=== PATIENT | male | born 1990 | race Caucasian/White ===

== ENCOUNTER → 2021-03-29 | Outpatient (CLI) | payer OTHER ==
--- NOTE | 2021-03-29 18:01 | XR ---
EXAMINATION TYPE: XR shoulder complete RT DATE OF EXAM: 03/29/2021 5:44 PM INDICATION: Patient age:Male; 30 years old; Reason for study: S46.911A; [facility]. COMPARISON: None TECHNIQUE: The right shoulder was examined in AP, internally rotated and axillary projections. FINDINGS: No evidence of acute osseous pathology, joint dislocation, or soft tissue swelling. The remaining por tions of the visualized chest are unremarkable. IMPRESSION: No acute osseous pathology.
== END | disposition home or self-care (01) ==
LOC: RADXRMAIN 17:11
PROVIDERS: ATTEND Emergency Medicine
DX: S46.911A Strain of unspecified muscle, fascia and tendon at shoulder and upper arm level, right arm, initial encounter (principal)

== ENCOUNTER 2021-08-26 14:28 | Emergency (ER) | payer OTHER ==
[2021-08-26 15:51] VITALS: BP 138/90; PULSE 83; RESP 18; TEMP 97.9
[2021-08-26 16:29] LABS: Basophils # (A) 0.1 k/uL (0-0.2); Basophils % (A) 1 %; Eosinophils # (A) 0.1 k/uL (0-0.7); Eosinophils % (A) 2 %; HCT 42.8 % (39.0-53.0); HGB 14.6 gm/dL (13.0-17.5); Lymphocytes # (A) 2.7 k/uL (1.0-4.8); Lymphocytes % (A) 35 %; MCH 28.9 pg (25.0-35.0); MCHC 34.2 g/dL (31.0-37.0); MCV 84.6 fL (80.0-100.0); Mean Platelet Volume 6.5; Monocytes # (A) 0.3 k/uL (0-1.0); Monocytes % (A) 3 %; Neutrophils # (A) 4.5 k/uL (1.3-7.7); Neutrophils % (A) 58 %; Platelet Count 237 k/uL (150-450); RBC 5.06 m/uL (4.30-5.90); RDW 12.3 % (11.5-15.5); WBC 7.7 k/uL (3.8-10.6)
[2021-08-26 16:37] LABS: ALT 55 U/L (4-49); AST 35 U/L (17-59); African American GFR (CKD) >90 (>60 ml/min/1.73 sqM); Albumin 4.6 g/dL (3.5-5.0); Alkaline Phosphatase 70 U/L (38-126); Amylase 47 U/L (30-110); Anion Gap 7 mmol/L; Blood Urea Nitrogen 15 mg/dL (9-20); Calcium 9.1 mg/dL (8.4-10.2); Carbon Dioxide 30 mmol/L (22-30); Chloride 104 mmol/L (98-107); Glucose 115 mg/dL (74-99); Lipase 40 U/L (23-300); Non-African American GFR(CKD) >90 (>60 ml/min/1.73 sqM); Potassium 3.9 mmol/L (3.5-5.1); Sodium 141 mmol/L (137-145); Total Bilirubin 0.4 mg/dL (0.2-1.3); Total Protein 7.3 g/dL (6.3-8.2)
--- NOTE | 2021-08-26 17:02 | XR ---
EXAMINATION TYPE: XR KUB DATE OF EXAM: 08/26/2021 4:35 PM INDICATION: Patient age:Male; 31 years old; Reason for study: abdominal pain; COMPARISON: None. TECHNIQUE: One radiographic view of the abdomen was obtained. FINDINGS: The bowel gas pattern is nonspecific without dilated loops of small or large bowel. The oss eous structures are intact. No abnormal calcifications are present. Fecal material and gas are demon strated throughout the colon and rectum. IMPRESSION: Nonspecific bowel gas pattern without radiographic evidence for acute process.
== END 2021-08-26 21:19 | disposition left against medical advice (07) ==
LOC: EC 14:28
DX: Z53.21 Procedure and treatment not carried out due to patient leaving prior to being seen by health care provider (principal); R10.9 Unspecified abdominal pain
CPT/HCPCS: 36415; 74018; 80053; 82150; 83690; 85025; 99499

== ENCOUNTER 2021-12-28 21:12 | Emergency (ER) | payer OTHER ==
[2021-12-28 22:26] VITALS: BP 152/109; PULSE 83; RESP 18; TEMP 98.5
[2021-12-29] MEDS ORDERED: SODIUM CHLORIDE 0.9% 1,000 ML IV STA (00:03)
[2021-12-29] MEDS ORDERED: PANTOPRAZOLE 40 MG/10 ML VIAL IVP STA (00:05)
[2021-12-29 00:42] LABS: Basophils % (A) 1 %; Eosinophils # (A) 0.1 k/uL (0-0.7); Eosinophils % (A) 2 %; HCT 41.2 % (39.0-53.0); HGB 15.2 gm/dL (13.0-17.5); Lymphocytes # (A) 2.7 k/uL (1.0-4.8); Lymphocytes % (A) 39 %; MCHC 36.9 g/dL (31.0-37.0); MCV 81.3 fL (80.0-100.0); Monocytes # (A) 0.4 k/uL (0-1.0); Monocytes % (A) 6 %; Neutrophils # (A) 3.6 k/uL (1.3-7.7); Neutrophils % (A) 52 %; Platelet Count 236 k/uL (150-450); RBC 5.07 m/uL (4.30-5.90); RDW 11.9 % (11.5-15.5); WBC 6.9 k/uL (3.8-10.6)
[2021-12-29 00:45] LABS: ALT 63 U/L (4-49); AST 38 U/L (17-59); African American GFR (CKD) >90 (>60 ml/min/1.73 sqM); Albumin 4.6 g/dL (3.5-5.0); Alkaline Phosphatase 74 U/L (38-126); Amylase 54 U/L (30-110); Anion Gap 12 mmol/L; Blood Urea Nitrogen 14 mg/dL (9-20); Carbon Dioxide 27 mmol/L (22-30); Chloride 100 mmol/L (98-107); Glucose 102 mg/dL (74-99); Lipase 56 U/L (23-300); Non-African American GFR(CKD) >90 (>60 ml/min/1.73 sqM); Potassium 3.8 mmol/L (3.5-5.1); Sodium 139 mmol/L (137-145); Total Bilirubin 0.5 mg/dL (0.2-1.3)
--- NOTE | 2021-12-29 01:18 | XR ---
EXAMINATION TYPE: XR KUB DATE OF EXAM: 12/29/2021 COMPARISON: NONE HISTORY: Acid reflux. Vomiting TECHNIQUE: Supine views FINDINGS: There is no sign of intestinal obstruction or pneumoperitoneum. Fecal pattern is normal. No evidence of a mass. Lung bases are clear. There are no pathologic calcifications. IMPRESSION: Nonacute abdomen.
--- NOTE | 2021-12-29 02:15 | ED ---
General Adult HPI - General Chief complaint: Nausea/Vomiting/Diarrhea Stated complaint: Vomiting Time Seen by Provider: 12/28/21 23:43 Source: patient Mode of arrival: ambulatory Limitations: no limitations - History of Present Illness Initial comments: Patient is a 31-year-old male with history of GERD presenting with chief complaint of nausea, vomiting, and worsening reflux symptoms. Symptoms ongoing for the last 3 days. Patient states that he occasionally experiences episodes of increasing symptoms similar to this. He is not on maintenance therapy at home. He admits to some epigastric pain, burning in nature. States that symptoms are worse laying flat. Symptoms are worse postprandial. Patient states that he needed to come in for evaluation after not going to work today. Denies chest pain, difficulty breathing, fever, chills, palpitations, weakness, diarrhea, hematochezia, melena, dysuria, hematuria. - Related Data Home Medications Medication Instructions Recorded Confirmed Citalopram Hydrobromide [CeleXA] 10 mg PO HS 08/07/14 08/07/14 Venlafaxine HCl [Effexor] 3 tab PO HS 08/07/14 08/07/14 Previous Rx's Medication Instructions Recorded Citalopram Hydrobromide [CeleXA] 10 mg PO HS 7 Days tab 08/07/14 Venlafaxine HCl [Effexor] 3 tab PO HS 7 Days tab 08/07/14 Omeprazole [PriLOSEC] 20 mg PO DAILY #20 cap 12/29/21 Allergies Allergy/AdvReac Type Severity Reaction Status Date / Time No Known Allergies Allergy Verified 12/28/21 22:23 Review of Systems ROS Statement: Those systems with pertinent positive or pertinent negative responses have been documented in the HPI. ROS Other: All systems not noted in ROS Statement are negative. Past Medical History Past Medical History: No Reported History History of Any Multi-Drug Resistant Organisms: None Reported Past Surgical History: No Surgical Hx Reported Past Psychological History: Anxiety, Depression, PTSD Smoking Status: Former smoker Past Alcohol Use History: None Reported Past Drug Use History: None Reported General Exam Limitations: no limitations General appearance: alert, in no apparent distress Head exam: Present: atraumatic, normocephalic, normal inspection Eye exam: Present: normal appearance, PERRL, EOMI. Absent: scleral icterus, conjunctival injection, periorbital swelling Neck exam: Present: normal inspection Respiratory exam: Present: normal lung sounds bilaterally. Absent: respiratory distress, wheezes, rales, rhonchi, stridor Cardiovascular Exam: Present: regular rate, normal rhythm, normal heart sounds. Absent: systolic murmur, diastolic murmur, rubs, gallop, clicks GI/Abdominal exam: Present: soft. Absent: distended, tenderness, guarding, rebound, rigid Neurological exam: Present: alert, oriented X3, CN II-XII intact Psychiatric exam: Present: normal affect, normal mood Skin exam: Present: warm, dry, intact, normal color. Absent: rash Course Vital Signs 12/28/21 22:23 Temperature 98.5 F Pulse Rate 83 Respiratory 18 Rate Blood Pressure 152/109 O2 Sat by Pulse 99 Oximetry Medical Decision Making - Medical Decision Making Patient is a 31-year-old male presenting with chief complaint of GERD-like symptoms. Patient has history of GERD, admits to worsening reflux and vomiting. He takes no medication for this at home. Physical examination is unremar kable. Lab work is grossly negative. KUB x-ray shows no acute processes. Patient will be discharged with omeprazole and instructions for follow-up. Follow-up with PCP. Report back to ER with any new or worsening symptoms. Discussed return parameters and answered all questions. Patient conveyed verbal understanding and agreed to the plan. I discussed this case in detail with my attending Dr. Gutiérrez. - Lab Data Result diagrams: 12/29/21 00:15 12/29/21 00:15 Lab Results 12/29/21 12/29/21 Range/Units 00:15 00:15 WBC 6.9 (3.8-10.6) k/uL RBC 5.07 (4.30-5.90) m/uL Hgb 15.2 (13.0-17.5) gm/dL Hct 41.2 (39.0-53.0) % MCV 81.3 (80.0-100.0) fL MCH 30.0 (25.0-35.0) pg MCHC 36.9 (31.0-37.0) g/dL RDW 11.9 (11.5-15.5) % Plt Count 236 (150-450) k/uL MPV 7.0 Neutrophils % 52 % Lymphocytes % 39 % Monocytes % 6 % Eosinophils % 2 % Basophils % 1 % Neutrophils # 3.6 (1.3-7.7) k/uL Lymphocytes # 2.7 (1.0-4.8) k/uL Monocytes # 0.4 (0-1.0) k/uL Eosinophils # 0.1 (0-0.7) k/uL Basophils # 0.0 (0-0.2) k/uL Sodium 139 (137-145) mmol/L Potassium 3.8 (3.5-5.1) mmol/L Chloride 100 (98-107) mmol/L Carbon Dioxide 27 (22-30) mmol/L Anion Gap 12 mmol/L BUN 14 (9-20) mg/dL Creatinine 0.89 (0.66-1.25) mg/dL Est GFR (CKD-EPI)AfAm >90 (>60 ml/min/1.73 sqM) Est GFR (CKD-EPI)NonAf >90 (>60 ml/min/1.73 sqM) Glucose 102 H (74-99) mg/dL Calcium 9.0 (8.4-10.2) mg/dL Total Bilirubin 0.5 (0.2-1.3) mg/dL AST 38 (17-59) U/L ALT 63 H (4-49) U/L Alkaline Phosphatase 74 (38-126) U/L Total Protein 7.0 (6.3-8.2) g/dL Albumin 4.6 (3.5-5.0) g/dL Amylase 54 (30-110) U/L Lipase 56 (23-300) U/L Disposition Clinical Impression: GERD (gastroesophageal reflux disease) Disposition: HOME SELF-CARE Condition: Good Instructions (If sedation given, give patient instructions): Diet for Stomach Ulcers and Gastritis (ED), GERD (Gastroesophageal Reflux Disease) (ED) Additional Instructions: Follow-up with PCP, recommendations have been provided for you. Report back to ER with any new or worsening symptoms. Take medication as prescribed. Prescriptions: Omeprazole [PriLOSEC] 20 mg PO DAILY #20 cap Is patient prescribed a controlled substance at d/c from ED?: No Referrals: None,Stated [Primary Care Provider] - 1-2 days Time of Disposition: 02:15
== END 2021-12-29 02:37 | disposition home or self-care (01) ==
LOC: EC 21:12
DX: K21.9 Gastro-esophageal reflux disease without esophagitis (principal); F41.9 Anxiety disorder, unspecified; F32.A Depression, unspecified; Z79.83 Long term (current) use of bisphosphonates; Z87.891 Personal history of nicotine dependence
CPT/HCPCS: 80053; 82150; 83690; 85025; 74018; 99284; 96374; 96361; C9113; 36415